=== PATIENT | female | born 1950 | race Caucasian/White ===

== ENCOUNTER → 2021-08-30 | Day surgery (SDC) | payer OTHER ==
[~2021-08-30] VITALS: Ht 160 cm; Wt 63.5 kg
[~2021-08-30] MED LIST: CALCIUM + VITA1 EACH PO; CELEXA20 MG PO; COZAAR100 MG PO; IRBESARTAN-HCT1 EACH PO; PERCOCET 5-3251 EACH PO; PHOSLO667 MG PO; PRAVACHOL20 MG PO; PRILOSEC20 MG PO; STOOL SOFT-STI1 EACH PO; XARELTO10 MG PO
[2021-08-30 07:12] LABS: HCT 40.1 % (37.0-47.0); HGB 13.8 g/dl (12.5-16.0); MCH 30.6 pg (25.0-31.0); MCHC 34.4 g/dL (32.0-36.0); MCV 88.9 fL (78.0-100.0); MPV 9.4 fL (6.0-9.5); RBC 4.51 M/uL (4.20-5.40); RDW 12.9 % (11.5-14.0); WBC 5.2 K/uL (4.0-10.5)
[2021-08-30 07:18] LABS: BUN/CREAT RATIO (CALC) 34.4 RATIO; CREATININE 0.61 mg/dL (0.51-0.95); POTASSIUM 3.7 mmol/L (3.5-5.1)
== END | disposition home or self-care (01) ==
LOC: FAS 06:09
PROVIDERS: Legal Medicine
DX: G56.01 Carpal tunnel syndrome, right upper limb (principal); G56.81 Other specified mononeuropathies of right upper limb; Z88.2 Allergy status to sulfonamides
CPT/HCPCS: 36415; 80048; J0690; J1100; J2250; J2704; J2795; J3010; J7120